=== PATIENT | female | born 1985 | race Caucasian/White ===

== ENCOUNTER 2017-03-11 12:24 | Emergency (ER) | payer OTHER ==
--- NOTE | ~2017-03-11 | US84 ---
[id number] [facility] [address] [place], [place] [address] [id number] E MR#: [id number] Acc #: [id number] NAME: ALBER MON : 1985 SEX: F STUDY DATE/TIME: 03/11/2017 15:30 UNIT: JIM[facility] ROOM: STUDY DESCRIPTION: US LE Veins Complete Demetrio Stdy Attending Physician: Rizwana Churchill P.A.-C. Ordering Physician: Rizwana Churchill P.A.-C. Primary Care Physician: No Primary Care Physician MEDICAL IMAGING REPORT This report is preliminary unless electronic signature is present EXAM Bilateral lower extremity venous ultrasound. HISTORY Bilateral lower extremity swelling for 4 days. TECHNIQUE Venous ultrasound examination of both lower extremities was performed using grayscale, spectral Doppler and color flow Doppler imaging. FINDINGS The examination is negative. There is no evidence of deep venous thrombus from the groin to the lower calf bilaterally. Visualized greater saphenous veins are also patent. IMPRESSION Negative examination. No evidence of lower extremity DVT. Dictated by... Jimenez Landa M.D. THIS IS AN ELECTRONICALLY VERIFIED REPORT Jimenez Landa M.D. at 03/11/2017 11:43 PM CRISTINE/sunitha TD: 03/11/2017 16:44 JOB #: [id number] MEDICAL IMAGING REPORT Page 1 of 1 COPY
[~2017-03-11 12:24] MED LIST: ACETAMINOPHEN PO; ALBUTEROL17 G1 IH; BACTRIM DS TABL1 TA1 PO; KEFLEX500 MG PO; KLONOPIN PO; KLONOPIN0.5 MG PO; LEVAQUIN750 M1 PO; LORTAB 5-325 M1 EACH PO; NO MEDICATIONS; PREDNISONE PO; SUBOXONE 8 MG-1 EAC1 SL; ULTRAM PO; VIBRAMYCIN100 M1 PO; VOLTAREN50 MG PO; ZOLOFT PO; ZOLOFT50 MG PO
[2017-03-11 13:49] LABS: BASOPHIL% 0.5 % (0-2.5); EOSINOPHIL# 0.2 X10e3 (0-0.7); EOSINOPHIL% 5.8 % (0.0-7.0); HEMATOCRIT 35.2 % (35.0-45.0); HEMOGLOBIN 11.9 gm/dL (12.0-16.0); LYMPHOCYTE# 1.2 X10e3 (1.0-3.5); LYMPHOCYTE% 34.7 % (17.0-45.0); MEAN CORPUSCULAR HEMOGLOBIN 30.8 PG (28-34); MEAN CORPUSCULAR HGB CONC 33.9 g/dL (30-36); MEAN PLATELET VOLUME 7.2 FL (6.5-11.5); MONOCYTE# 0.4 X10e3 (0-1.0); MONOCYTE% 12.4 % (3.0-12.0); NEUTROPHIL# 1.7 X10e3 (1.5-7.1); NEUTROPHIL% 46.6 % (40-75); PLATELET COUNT 218 X10e3 (140-420); RED BLOOD COUNT 3.87 X10e (3.90-5.30); RED CELL DISTRIBUTION WIDTH 14.8 % (11.0-15.5); WHITE BLOOD COUNT 3.6 X10e3 (4.0-10.5)
[2017-03-11 13:55] LABS: DIFF IND NO
[2017-03-11 14:16] LABS: BUN/CREATININE RATIO 26.66; CALCIUM SERUM 8.5 mg/dL (8.4-10.2); CREATININE SERUM 0.6 mg/dL (0.6-1.4); GLOM FILT RATE Estimated 121.5 mL/min (>60); POTASSIUM 3.3 mmol/L (3.5-5.1)
[2017-03-11 14:16] LABS: URINE SOURCE CLEAN CATCH
[2017-03-11 14:22] LABS: URINE APPEARANCE CLEAR; URINE BILIRUBIN NEG (NEG); URINE BLOOD NEG (NEG); URINE COLOR YELLOW; URINE GLUCOSE NEG (NEG); URINE KETONE NEG (NEG); URINE LEUKOCYTE ESTERASE TRACE (NEG); URINE NITRATE NEG (NEG); URINE PH 5.5 (5-8); URINE PROTEIN NEG (NEG); URINE SPECIFIC GRAVITY 1.011 (1.003-1.035)
[2017-03-11 14:25] LABS: URBCS1 AUWI 0-2 /[HPF] (0-2); URINE BACTERIA AUWI NEG (NEGATIVE); URINE SQUAMOUS EPITHELIAL CELL NONE SEEN /[HPF]; UWBCS1 AUWI 0-2 (0-5)
[2017-03-11 14:28] LABS: CULTURE INDICATED? NO
[2017-03-11 14:34] LABS: AMPHETAMINE POS (NEG); BARBITURATES NEG (NEG); BENZODIAZEPINES POS (NEG); COCAINE NEG (NEG); MARIJUANA NEG (NEG); OPIATES NEG (NEG); TRICYCLIC ANTIDEPRESSANTS NEG (NEG); U METHADONE POS (NEG)
== END 2017-03-11 20:02 | disposition home or self-care (01) ==
LOC: CED 12:24
PROVIDERS: Physician Assistant
DX: L03.116 Cellulitis of left lower limb (principal); L03.115 Cellulitis of right lower limb; F31.9 Bipolar disorder, unspecified; F20.9 Schizophrenia, unspecified; F41.9 Anxiety disorder, unspecified; F17.210 Nicotine dependence, cigarettes, uncomplicated; Z79.899 Other long term (current) drug therapy
CPT/HCPCS: 36415; 80048; 80307; 81003; 83605; 85025; 87040; 93970; 96365; 96372; 99284; J0696; J1885; J3370

== ENCOUNTER 2017-07-23 21:25 | Emergency (ER) | payer OTHER ==
[~2017-07-23] VITALS: Ht 170.2 cm; Wt 95.3 kg
== END 2017-07-23 23:45 | disposition home or self-care (01) ==
LOC: CED 21:25 → CFTX 21:25
DX: L03.115 Cellulitis of right lower limb (principal); F19.10 Other psychoactive substance abuse, uncomplicated; F17.210 Nicotine dependence, cigarettes, uncomplicated; F41.9 Anxiety disorder, unspecified; F31.9 Bipolar disorder, unspecified; F20.9 Schizophrenia, unspecified
CPT/HCPCS: 84703; 96372; 99283; J1885